=== PATIENT | male | born 2000 | race Caucasian/White ===

== ENCOUNTER 2020-12-14 13:31 | Emergency (ER) | payer BC ==
[~2020-12-14] VITALS: Ht 190.5 cm; Wt 99.8 kg
== END 2020-12-14 14:45 | disposition home or self-care (01) ==
LOC: ER 13:31
DX: M79.652 Pain in left thigh (principal); V49.40XA Driver injured in collision with unspecified motor vehicles in traffic accident, initial encounter; Y92.410 Unspecified street and highway as the place of occurrence of the external cause
CPT/HCPCS: 99283

== ENCOUNTER 2020-12-22 23:08 | Observation (INO) | payer BC ==
[~2020-12-22] VITALS: Ht 190.5 cm; Wt 102.1 kg
[2020-12-23 00:20] LABS: BASOPHILS ABSOLUTE AUTO 0.04 K/mm3 (0.00-0.23); BASOPHILS PERCENT AUTO 1 % (0-2); EOSINOPHILS ABSOLUTE AUTO 0.48 K/mm3 (0.00-0.68); EOSINOPHILS PERCENT AUTO 9 % (0-6); Hematocrit 42.9 % (37.0-53.0); Hemoglobin 14.9 g/dL (13.5-17.5); IMMATURE GRAN ABSOLUTE AUTO 0.02 K/mm3 (0.00-0.10); IMMATURE GRAN PERCENT AUTO 0 % (0-1); LYMPHOCYTES ABSOLUTE AUTO 2.18 K/mm3 (0.84-5.20); LYMPHOCYTES PERCENT AUTO 39 % (21-46); MONOCYTES ABSOLUTE AUTO 0.42 K/mm3 (0.16-1.47); MONOCYTES PERCENT AUTO 8 % (4-13); Mean Corpuscular HGB 32.1 pg (26.0-34.0); Mean Corpuscular HGB Conc 34.7 g/dL (31.5-36.5); Mean Corpuscular Volume 93 fL (80-100); Mean Platelet Volume 8.7 fL (9.1-12.4); NEUTROPHILS ABSOLUTE AUTO 2.39 K/mm3 (1.96-9.15); NEUTROPHILS PERCENT AUTO 43 % (41-73); Platelet Count 296 K/mm3 (150-400); RDW Coefficient Variation 11.9 % (11.7-14.2); RDW Standard Deviation 40.4 fL (35.1-46.3); Red Blood Cell Count 4.64 M/mm3 (4.30-5.90); White Blood Cell Count 5.53 K/mm3 (4.00-11.30)
[2020-12-23 00:38] LABS: Alanine Aminotransfer (ALT/SGP 24 U/L (12-78); Albumin, Blood 4.1 g/dL (3.4-5.0); Albumin/Globulin Ratio 1.2 (0.8-1.8); Alk Phos 71 U/L (50-136); Anion Gap 6 mmol/L (6-16); Aspartate Aminotrans (AST/SGOT 20 U/L (12-37); Bilirubin, Total 0.4 mg/dL (0.1-1.0); Blood Urea Nitrogen 13 mg/dL (8-24); Bun/Creatinine Ratio 14.8 (12.0-20.0); CO2, Blood 27 mmol/L (21-32); Calcium, Blood 8.1 mg/dL (8.5-10.1); Chloride, Blood 110 mmol/L (98-108); Creatinine, Blood 0.88 mg/dL (0.60-1.20); Ethanol (Alcohol), Blood, Med 238 mg/dL; Globulin, Blood 3.4 g/dL (2.2-4.0); Glomerular Filtration Rate >60 (60-); Glucose, Blood 110 mg/dL (70-99); Potassium, Blood 3.3 mmol/L (3.5-5.5); Sodium, Blood 143 mmol/L (136-145); Total Protein, Blood 7.5 g/dL (6.4-8.2)
[2020-12-23 07:30] LABS: U Amphetamine Screen Not Detected; U Barbituate Screen Not Detected; U Benzodiazapine Screen DETECTED; U Buprenorphine Screen Not Detected; U Cannabinoids Screen DETECTED; U Cocaine Screen Not Detected; U Methadone Screen Not Detected; U Methamphetamine Screen Not Detected; U Opiates Screen Not Detected; U Oxycodone Screen Not Detected; U Phencyclidine Screen Not Detected; U Propoxyphene Screen Not Detected
[2020-12-23] MEDS ORDERED: Ativan0.5 MG PO (09:24)
[2020-12-23] MEDS ORDERED: Zoloft25 MG PO (09:24)
== END 2020-12-23 09:44 | disposition home or self-care (01) ==
LOC: ER 23:08 → EOR 23:09
PROVIDERS: ADMIT Student in an Organized Health Care Education/Training Program
DX: F32.9 Major depressive disorder, single episode, unspecified (principal); F41.9 Anxiety disorder, unspecified; F10.129 Alcohol abuse with intoxication, unspecified; Y90.7 Blood alcohol level of 200-239 mg/100 ml
CPT/HCPCS: 36415; 80053; 85025; 99285; G0378; G0480

== ENCOUNTER 2022-04-05 20:53 | Emergency (ER) | payer BC ==
[~2022-04-05] VITALS: Ht 190.5 cm; Wt 99.8 kg
[~2022-04-05 20:53] MED LIST: Ativan0.5 MG PO; HYDHCL25 PO; HYDPAM25 PO; SERT50 PO; ZOLOFT25 MG PO; Zoloft25 MG PO
[2022-04-05] MEDS ORDERED: HYDPAM25 PO (22:04)
== END 2022-04-05 22:31 | disposition home or self-care (01) ==
LOC: ER 20:53
DX: B08.4 Enteroviral vesicular stomatitis with exanthem (principal); F17.290 Nicotine dependence, other tobacco product, uncomplicated; Z88.0 Allergy status to penicillin
CPT/HCPCS: 99282

== ENCOUNTER 2022-04-18 12:36 | Emergency (ER) | payer BC ==
[~2022-04-18] VITALS: Ht 193 cm; Wt 99.8 kg
== END 2022-04-18 13:20 | disposition home or self-care (01) ==
LOC: ER 12:36
DX: Z04.89 Encounter for examination and observation for other specified reasons (principal); F17.290 Nicotine dependence, other tobacco product, uncomplicated; Z88.0 Allergy status to penicillin
CPT/HCPCS: 99281

== ENCOUNTER 2022-06-16 10:41 | Emergency (ER) | payer BC, OTHER ==
[~2022-06-16] VITALS: Ht 190.5 cm; Wt 99.8 kg
[2022-06-16] MEDS ORDERED: ALBU90OI INH (11:43)
== END 2022-06-16 11:50 | disposition home or self-care (01) ==
LOC: ER 10:41
DX: J45.909 Unspecified asthma, uncomplicated (principal); F17.290 Nicotine dependence, other tobacco product, uncomplicated; Z88.0 Allergy status to penicillin
CPT/HCPCS: 71046

== ENCOUNTER 2024-05-04 04:14 | Emergency (ER) | payer OTHER ==
[~2024-05-04] VITALS: Ht 190.5 cm; Wt 99.8 kg
[~2024-05-04 04:14] MED LIST changes: +ALBU90OI INH
[2024-05-04 10:18] VITALS: BP 116/74
== END 2024-05-04 10:37 | disposition home or self-care (01) ==
LOC: ER 04:14
DX: M24.412 Recurrent dislocation, left shoulder (principal); F17.290 Nicotine dependence, other tobacco product, uncomplicated; Z88.0 Allergy status to penicillin
CPT/HCPCS: 70450; 72125; 73030; 99284-25